=== PATIENT | male | born 1990 | race African-American/Black ===

== ENCOUNTER 2017-05-15 10:45 | Emergency (ER) | payer MEDICAID ==
[~2017-05-15] VITALS: Wt 71.5 kg
[2017-05-15] MEDS ORDERED: CEPH-443 PO (12:46)
--- NOTE | 2017-05-15 12:57 | ERD ---
ER Documentation Chief Complaint Date/Time DATE: 05/15/17 TIME: 12:55 Chief Complaint SWELLING ON RIGHT MIDDLE FINGER HPI 27-year-old male comes in with swelling, and pain to the right middle digit started 3 days ago. Patient states that it started with a small cutting and appears to be infected. He has no difficulty with moving his digit. He denies trauma. ROS All systems reviewed and are negative except as per history of present illness. Medications Home Meds Active Scripts Cephalexin* (Keflex*) 500 Mg Capsule, 500 MG PO QID for 5 Days, CAP Prov:MILENA DE LEON PA-C 05/15/17 Allergies Allergies: Coded Allergies: No Known Allergy (Unverified , 05/15/17) PMhx/Soc Medical and Surgical Hx: pt denies Medical Hx, pt denies Surgical Hx Hx Alcohol Use: No Hx Substance Use: No Hx Tobacco Use: No Smoking Status: Never smoker Physical Exam Vitals Vital Signs Date Time Temp Pulse Resp B/P Pulse Ox O2 Delivery O2 Flow Rate FiO2 05/15/17 10:47 97.3 87 16 144/97 99 Physical Exam General: Well-developed, well-nourished. The patient appears in no acute distress. HEENT: Head is normocephalic, atraumatic. No scleral icterus. Neck: Supple. Nontender. Lungs: Clear to auscultation. Normal air movement. Heart: Regular rate and rhythm. S1 and S2 are normal. No murmurs, gallops, or rubs. Abdomen: Nondistended. Extremities: No clubbing or cyanosis. Moving extremities x 4. No weakness. Neurologic: Alert and oriented 3. No focal deficits. Normal speech and gait. Skin: Lateral aspect of the nailbed has a paronychia of the right third digit. Patient has good capillary refill, is able to flex and extend at the DIP, PIP and MCP joint. He is able to make a fist. No lymphatic streaking involved. The hand is atraumatic. Procedures/MDM Abscess Incision and Drainage with irrigation by me: Patient was verbally consented Location: Right third digit Anesthesia: Deferred Technique: #11 blade introduced to the nailbed of the right third digit Packing: None Complications: Neurovascularly intact post procedure Patient's skin symptoms have stabilized while they have been evaluated in the department and are appropriate for outpatient care and work up. Exam and w/u not consistent w/Tenosynovitis, fracture, osteomyelitis, deep space infection, or foreign body. Departure Diagnosis: Primary Impression: Paronychia Additional Impression: Encounter for incision and drainage procedure Condition: Good Patient Instructions: Paronychia Additional Instructions: Wound check in 2 days MILENA DE LEON PA-C May 15, 2017 12:57
== END 2017-05-15 13:10 | disposition home or self-care (01) ==
LOC: FTE 10:45
DX: L03.011 Cellulitis of right finger (principal)
CPT/HCPCS: 10060; Z7502